=== PATIENT | male | born 1990 | race African-American/Black ===

== ENCOUNTER 2019-09-09 23:11 | Emergency (ER) | payer SELFPAY ==
[2019-09-09] MEDS ORDERED: traMADol HCl 50 MG TAB ONE (23:44)
[2019-09-09] MEDS ORDERED: Azithromycin 250 MG TAB ONE (23:44)
== END 2019-09-10 00:03 | disposition home or self-care (01) ==
LOC: MADERS 23:11
DX: K04.7 Periapical abscess without sinus (principal); K02.9 Dental caries, unspecified; F17.210 Nicotine dependence, cigarettes, uncomplicated
CPT/HCPCS: 99282

== ENCOUNTER 2023-07-07 03:48 | Emergency (ER) | payer OTHER, SELFPAY ==
[2023-07-07] MEDS ORDERED: Boostrix 0.5 ML (Tdap) VIAL (>/=7 yrs of age) ONE (04:09)
[2023-07-07] MEDS ORDERED: Ketorolac Tromethamine 60 MG/2 ML VIAL ONE (04:23)
[2023-07-07] MEDS ORDERED: CEFAZOLIN 1 GM VIAL ONE (04:23)
[2023-07-07] MEDS ORDERED: Ciprofloxacin 500 MG TAB ONE (04:23)
[2023-07-07] MEDS ORDERED: predniSONE 20 MG TAB ONE (04:24)
[2023-07-07] MEDS ORDERED: Sterile Water 10 ML ONE (04:24)
== END 2023-07-07 04:48 | disposition home or self-care (01) ==
LOC: MADERS 03:48
DX: S61.231A Puncture wound without foreign body of left index finger without damage to nail, initial encounter (principal); L03.012 Cellulitis of left finger; F17.210 Nicotine dependence, cigarettes, uncomplicated; Y27.8XXA Contact with other hot objects, undetermined intent, initial encounter; Y99.0 Civilian activity done for income or pay; Z23 Encounter for immunization
CPT/HCPCS: 90471; 90715; 96372; J0690; J1885; J7512